=== PATIENT | male | born 1960 | race Caucasian/White ===

== ENCOUNTER 2024-08-06 09:35 | Emergency (ER) | payer OTHER, SELFPAY ==
[2024-08-06] VITALS (7 sets, daily range): BP systolic 147–174; BP diastolic 80–104; PULSE 60–69; RESP 14–19; TEMP 36.4; O2SAT 100
--- NOTE | ~2024-08-06 | XR_ITS ---
EXAMINATION: XR chest 2V 08/06/2024 10:41 INDICATION: Lightheadedness PROCEDURE: 2 view chest COMPARISON: No prior studies for comparison. FINDINGS: The lungs are clear. The cardiomediastinal silhouette is within normal limits. There are no pleural effusions. There is no pneumothorax suspected. IMPRESSION: 1: NO ACUTE CARDIOPULMONARY DISEASE. Reviewed, dictated and finalized at location A.
--- NOTE | 2024-08-06 09:48 | ECG_ITS ---
Test Date: 2024-08-06 09:50:27 Measurements Intervals [place] Rate: 58 P: 67 [place]: 167 QRS: 55 QRSD: 156 T: 15 QT: 462 QTc: 454 Interpretive Statements SINUS BRADYCARDIA WITH OCCASIONAL VENTRICULAR PREMATURE COMPLEXES RIGHT BUNDLE BRANCH BLOCK ABNORMAL ECG No previous ECG available for comparison Electronically Signed On 08-06-2024 09:59:39 CDT by Faizan Chester D.O.
[2024-08-06 10:03] LABS: Basophils Absolute Auto 0.1 K/mm3 (0.0-0.1); Basophils Percent Auto 0.7 % (0.2-1.2); Eosinophils Absolute Auto 0.1 K/mm3 (0-0.3); Eosinophils Percent Auto 0.6 % (0-4.4); Hematocrit 45.4 % (42.0-52.0); Hemoglobin 15.6 g/dL (14.0-18.0); Immature Granulocyte Absolute 0.03 K/mm3 (0.00-0.031); Immature Granulocyte Percent A 0.3 % (0-0.5); Lymphocytes Absolute Auto 1.38 K/mm3 (0.9-3.2); Lymphocytes Percent Auto 14.7 % (18.3-44.2); Mean Corpuscular HGB Conc 34.4 g/dl (32-36); Mean Corpuscular Hemoglobin 31.8 pg (26-34); Mean Corpuscular Volume 92.5 fl (80-100); Mean Platelet Volume 10.5 fl (7.4-10.4); Monocytes Absolute Auto 0.3 K/mm3 (0.1-0.6); Monocytes Percent Auto 3.4 % (2.6-8.5); Neutrophils Absolute Auto 7.5 K/mm3 (1.3-6.7); Neutrophils Percent Auto 80.3 % (45.5-73.1); Platelet Count Result 188 k/mm3 (150-375); Red Blood Count 4.91 M/mm3 (4.6-6.20); Red Cell Distribution Width 12.6 % (11.5-14.5); White Blood Count 9.4 K/mm3 (4.5-10.0)
--- OUTSIDE RECORDS SUMMARY | 2024-08-06 10:20 | XMS_ITS | Referral Summary ---
Author Organization [address] Address [address] [place] [address] Care Team Providers Care Real Estate Services Administrator Name Role Phone Walker Manning MD Primary Care Provider [phone] Allergies No known active allergies Medications aspirin (ASPIR-81) 81 mg tablet 81 mg. 0 0 5 Active Additional Information Patient taking differently:81 mgDaily, Reported on 12/14/2022 melatonin 5 mg capsuleIndicatio ns:Persistent disorder of initiating or maintaining sleep Take melatonin 5 mg if patient awakens during the night. 90 capsule 3 2 Active Additional Information Patient not taking.Reported on 12/13/2021 nitroglycerin (NITROSTAT) 0.4 mg SL tablet DISSOLVE 1 TABLET UNDER THE TONGUE EVERY 5 MINUTES NEEDED FOR CHEST PAIN. MAX OF 3 TABLETS IN 15 MINUTES. CALL 911 IF PAIN PERSISTS. 100 tablet 3 3 Active Additional Information Patient not taking.Reported on 03/24/2023 lisinopriL (PRINIVIL,ZESTRI L) 20 mg tablet TAKE 1 TABLET BY MOUTH DAILY 90 tablet 3 4 Active rosuvastatin (CRESTOR) 20 mg tablet TAKE 1 TABLET BY MOUTH DAILY 90 tablet 3 4 Active niacin ER (NIASPAN) 1,000 mg CR tablet TAKE 1 TABLET BY MOUTH AT NIGHT 90 tablet 3 4 Active metoprolol XL (TOPROL-XL) 50 mg extended release tablet TAKE 1 TABLET BY MOUTH DAILY 90 tablet 3 4 Active Active Problems Problem Noted Date Diagnosed Date Persistent disorder of initiating or maintaining sleep 08/11/2021 Encounter for preventive care 10/04/2020 Assessment & Plan (10/04/2020 12:03 PM CDT): Continue healthy lifestyle. Will order Cologuard and PSA testing as below. Will administer Tdap. Encouraged to get Shingrix. Knee pain 10/30/2016 Obstructive sleep apnea syndrome 04/29/2015 Overview (06/07/2016): Obstructive sleep apnea Assessment & Plan (05/05/2019 12:07 PM SENIOR SECURITY ARCHITECT): He will be placed on air sense 10 APAP set from 8-12 cm of water pressure. His goal of therapy will BT uses machine nightly for 7-9 hours. All supplies will be ordered. Onychomycosis 02/03/2014 Infectious warts 02/03/2014 Adult BMI 26.0-26.9 kg/sq m 07/28/2013 Atherosclerosis of coronary artery 04/27/2011 Assessment & Plan (10/04/2020 12:03 PM CDT): Stable. Lipids well-optimized. Continue current medications. Hypertension 04/27/2011 Assessment & Plan (10/04/2020 12:04 PM CDT): Home BP's at goal of < 130/80. Continue to monitor home blood pressures. Continue lisinopril 20 mg daily. Assessment & Plan (05/05/2019 12:08 PM SENIOR SECURITY ARCHITECT): Reviewed and discussed with the patient that consistent use of his APAP therapy can help reduce risk of heart attack, stroke, irregular heart rhythm, congestive heart failure, diabetes and blood pressure control. He will be placed on a Pap 8-12 cm water pressure. Hypercholesterolemia 04/03/2011 Immunizations Immunization Administration Dates Next Due Tdap 10/04/2020 Social History Tobacco Use Types Packs/Day Years Used Date Smoking Tobacco: Never Smokeless Tobacco: Never Alcohol Use Standard Drinks/Week Comments Yes 0 (1 standard drink = 0.6 oz pur e alcohol) AUDIT-C Answer Date Recorded Q1: How often do you have a drink containing alcohol? 4 or more times a week 10/04/2020 Q2: How many drinks containi ng alcohol do you have on a typical day when you are drinking? 1 or 2 Q3: How often do you have si x or more drinks on one occasion? Never 10/04/2020 PHQ-2 Answer Date Recorded PHQ-2 Total Score (If total score is 3 or more points, staff should administer the PHQ-9) 0 10/04/2020 Exercise Vital Sign Answer Date Recorde d On average, how many days pe r week do you engage in moderate to strenuous exercise (like a brisk walk)? 7 days 10/04/2020 On average, how many minutes do you engage in exercise at this level? 30 min 10/04/2020 Sex and Gender Information Value Date Recorded Sex Assigned at Not on file Legal Sex Male 12:38 AM SENIOR SECURITY ARCHITECT Gender Identity Not on file Sexual Orientation Not on file Last Filed Vital Signs Vital Sign Reading Time Taken Comments Blood Pressure 118/74 03/24/2023 9:23 AM SENIOR SECURITY ARCHITECT Pulse 72 03/24/2023 9:23 AM SENIOR SECURITY ARCHITECT Temperature 37.2 C (99 F) 03/24/2023 9:23 AM SENIOR SECURITY ARCHITECT Respiratory Rate 18 03/24/2023 9:23 AM SENIOR SECURITY ARCHITECT Oxygen Saturation 95% 03/24/2023 9:23 AM SENIOR SECURITY ARCHITECT Inhaled Oxygen Concentration - - Weight 83.4 kg (183 lb 12.8 oz) 03/24/2023 9:23 AM SENIOR SECURITY ARCHITECT Height 182.9 cm (6' 0.01) 03/24/2023 9:23 AM CS T Body Mass Index 24.92 03/24/2023 9:23 AM SENIOR SECURITY ARCHITECT Plan of Treatment Not on file Procedures Procedure Name Priority Date/Time Associated Diagnosis Comments STOOL DNA COLOGUARD Routine 10/25/2020 10:45 AM CDT Colon cancer screening HEPATITIS C ANTIBODY Routine 10/04/2020 11:01 AM CDT Need for hepatitis C screening test PSA SCREEN Routine 10/04/2020 11:01 AM CDT Prostate cancer screening from Last 3 Months or Most Recently Relevant to Health Maintenance Results * Stool DNA - Cologuard (10/25/2020 10:45 AM CDT) Stool DNA - Cologuard Negative Negative [facility] (CLIA #:[id number]) Comment: NEGATIVE TEST RESULT. A negative Cologuard result indicates a low likelihood that a colorectal cancer (CRC) or advanced adenoma (adenomatous polyps with more advanced pre-malignant features) is present. The chance that a person with a negative Cologuard test has a colorectal cancer is less than 1 in 1500 (negative predictive value >99.9%) or has an advanced adenoma is less than 5.3% (negative predictive value 94.7%). These data are based on a prospective cross-sectional study of 10,000 individuals at average risk for colorectal cancer who were screened with both Cologuard and colonoscopy. (Phyllis Griffith et al, N Engl J Med 2014;370(14):8191-8592) The normal value (reference range) for this assay is negative. COLOGUARD RE-SCREENING RECOMMENDATION: Periodic colorectal cancer screening is an important part of preventive healthcare for asymptomatic individuals at average risk for colorectal cancer. Following a negative Cologuard result, the [place] Cancer Society and U.S. Multi-Society Task Force screening guidelines recommend a Cologuard re-screening interval of 3 years. References: [place] [employer] Society Guideline for Colorectal Cancer Screening: https://www.cancer.org/cancer/fxnky-fedgin-wdblmz/ufaxsezbc-eudtcirim-upnrsea/ac s-rec ommendations.html.; Sandoval BATEMAN, Harish FRAZIER, Claudy MijaresK, Colorectal Cancer Screening: Recommendations for Physicians and Patients from the U.S. Multi-Society Task Force on Colorectal Cancer Screening , Am J Gastroenterology 2017; 112:2259-8769. TEST DESCRIPTION: Composite algorithmic analysis of stool DNA-biomarkers with hemoglobin immunoassay. Quantitative values of individual biomarkers are not reportable and are not associated with individual biomarker result reference ranges. Cologuard is intended for colorectal cancer screening of adults of either sex, 45 years or older, who are at average-risk for colorectal cancer (CRC). Cologuard has been approved for use by the U.S. FDA. The performance of Cologuard was established in a cross sectional study of average-risk adults aged 50-84. Cologuard performance in patients ages 45 to 49 years was estimated by sub-group analysis of near-age groups. Colonoscopies performed for a positive result may find as the most clinically significant lesion: colorectal cancer [4.0%], advanced adenoma (including sessile serrated polyps greater than or equal to 1cm diameter) [20%] or non- advanced adenoma [31%]; or no colorectal neoplasia [45%]. These estimates are derived from a prospective cross-sectional screening study of 10,000 individuals at average risk for colorectal cancer who were screened with both Cologuard and colonoscopy. (Phyllis Mayers. et al, N Engl J Med 2014;370(14):4981-5237.) Cologuard may produce a false negative or false positive result (no colorectal cancer or precancerous polyp present at colonoscopy follow up). A negative Cologuard test result does not guarantee the absence of CRC or advanced adenoma (pre-cancer). The current Cologuard screening interval is every 3 years. ([place] Cancer Society and U.S. Multi-Society Task Force). Cologuard performance data in a 10,000 patient pivotal study using colonoscopy as the reference method can be accessed at the following location: www.[employer]!/results. Additional description of the Cologuard test process, warnings and precautions can be found at www.[employer]orica[employer].com. Stool 10/25/2020 10:4 5 AM CDT 10/26/2020 4:03 PM CDT us Walker Manning MD LAB BODY FLUIDS AND STOOLS OR DERABLES Final Result [facility] (CLIA #:[id number]) [place] [address] [address] * PSA screen (10/04/2020 11:01 AM CDT) PSA 0.5 0.0 - 4.0 ng/mL [facility] - 01 Comment: Rachel ECLIA methodology. According to the [place] U[employer] Association, Serum PSA should decrease and remain at undetectable levels after radical prostatectomy. The AUA defines biochemical recurrence as an initial PSA value 0.2 ng/mL or greater followed by a subsequent confirmatory PSA value 0.2 ng/mL or greater. Values obtained with different assay methods or kits cannot be used interchangeably. Results cannot be interpreted as absolute evidence of the presence or absence of malignant disease. Blood specimen (specimen) 10/04/2020 11:01 AM CDT 10/04/2020 Narrative [facility] - 10/05/2020 6:10 AM CDT Performed at: [address] [place] [id number] Cutter: Sunil Gallegos PhD, Phone: [phone] Walker Manning MD LAB BLOOD ORDERABLES Final Re sult Performing Organization Address [place] de Phone Number [facility] * Hepatitis C antibody (10/04/2020 11:01 AM CDT) [facility] [address] [facility] Hep C Ab <0.1 0.0 - 0.9 s/co ratio [facility] - 01 Comment: Negative: < 0.8 Indeterminate: 0.8 - 0.9 Positive: > 0.9 The CDC recommends that a positive HCV antibody result be followed up with a HCV Nucleic Acid Amplification test (226222). Blood specimen (specimen) 10/04/2020 11:01 AM CDT 10/04/2020 Narrative [facility] - 10/05/2020 6:10 AM CDT Performed at: [address] [place] [id number] Cutter: Sunil Gallegos PhD, Phone: [phone] Walker Manning MD LAB MICROBIOLOGY - GENERAL OR DERABLES Final Result Performing Organization Address [place] de Phone Number [facility] from Last 3 Months or Most Recently Relevant to Health Maintenance Insurance [employer] OPEN ACCESS ANTHEM ACCESS CHOICE [employer]IG[employer] HE[employer] PPO [facility] CHOICE PLUS [facility] ACCESS CHOICE [facility] CHOICE PLUS [facility] CHOICE PLUS Care Teams Real Estate Services Administrator Relationship Specialty Start Date End Date Walker Manning MD PCP - General Endocrinology Diabetes & Metabolism 10/03/20
--- OUTSIDE RECORDS SUMMARY | 2024-08-06 10:20 | XMS_ITS | Clinical Summary ---
Author Organization [address] Address [address] [place] [address] Care Team Providers Care Nursing Clerk Name Role Phone Walker Manning MD Primary Care Provider [phone] Allergies No known active allergies Medications aspirin [...] apnea Assessment & Plan (05/05/2019 12:07 PM PHOTO MASK PATTERN GENERATOR): He will be placed on air sense [...] daily. Assessment & Plan (05/05/2019 12:08 PM PHOTO MASK PATTERN GENERATOR): Reviewed and discussed with the patient that consistent use of his APAP therapy can help reduce risk of heart attack, stroke, irregular heart rhythm, congestive heart failure, diabetes and blood pressure control. He will be placed on a Pap 8-12 cm water pressure. Hypercholesterolemia 04/03/2011 Immunizations Immunization Administration Dates Next Due Tdap 10/04/2020 Surgical History Surgery Date Site/Laterality Comments OTHER SURGICAL HISTORY ear surgery - stapendectomy bilateral STAPEDECTOMY Medical History Medical History Date Comments Hypertension Hypertension Chronic coronary artery disease Coronary artery disease Hx Other Medical hyperlipidemia; Comments: [facility] 04/20/2014 - Hx Other Medical OR 2006; Commen ts: [facility] 04/20/2014 - Recurrent sinus infections Hyperlipidemia Family History Medical History Relation Name Comments Heart attack Brother Myocardial infa rction; Heart attack Father Myocardial infa rction; Other Mother inflamatory lashae scott; Relation Name Status Comments Brother Father Mother Social History Tobacco Use Types Packs/Day Years [...] on file Legal Sex Male 12:38 AM PHOTO MASK PATTERN GENERATOR Gender Identity Not on file Sexual Orientation Not on file Obstetrics History Last Filed Vital Signs Vital Sign Reading Time Taken Comments Blood Pressure 118/74 03/24/2023 9:23 AM PHOTO MASK PATTERN GENERATOR Pulse 72 03/24/2023 9:23 AM PHOTO MASK PATTERN GENERATOR Temperature 37.2 C (99 F) 03/24/2023 9:23 AM PHOTO MASK PATTERN GENERATOR Respiratory Rate 18 03/24/2023 9:23 AM PHOTO MASK PATTERN GENERATOR Oxygen Saturation 95% 03/24/2023 9:23 AM PHOTO MASK PATTERN GENERATOR Inhaled Oxygen Concentration - - Weight 83.4 kg (183 lb 12.8 oz) 03/24/2023 9:23 AM PHOTO MASK PATTERN GENERATOR Height 182.9 cm (6' 0.01) 03/24/2023 9:23 AM CS T Body Mass Index 24.92 03/24/2023 9:23 AM PHOTO MASK PATTERN GENERATOR Plan of Treatment Health Maintenance Due Date Last Done Comments Colon Cancer Screening-Colonoscopy 1960 Fall Risk Assessment 1960 Hepatitis B Screening 01/21/1976 Pneumococcal vaccine 65+ (1 of 1 - PCV) 01/21/2008 Zoster Vaccine (1 of 2) 01/21/2008 Depression Screening 10/04/2021 10/04/2020 Prostate Cancer Screening-PSA 10/04/2022 10/04/2020 Abdominal Aortic Aneurysm (AAA) Screen 2023 Well Visit 65+ 2023 10/04/2020 Influenza Vaccine (Season Ended) 2024 DTaP/Tdap/Td Vaccine (2 - Td or Tdap) 10/04/203005/2020 Hepatitis C Screening Completed 10/04/2020 Colon Cancer Screening-DNA Stool Discontinued 10/26/19 Colon Cancer Screening-FIT Discontinued 10/25/2020 Procedures Procedure Name Priority Date/Time Associated Diagnosis [...] DNA - Cologuard (10/25/2020 10:45 AM CDT) Pathologist [facility] Stool DNA - Cologuard Negative Negative [place] (CLIA #:[id number]) Comment: NEGATIVE TEST RESULT. A negative Cologuard [...] screened with both Cologuard and colonoscopy. (Phyllis Marcelo al, N Engl J Med 2014;370(14):1531-3688) The normal value (reference range) for this assay is negative. COLOGUARD RE-SCREENING RECOMMENDATION: Periodic colorectal cancer screening is an important part of preventive healthcare for asymptomatic individuals at average risk for colorectal cancer. Following a negative Cologuard result, the [place] [employer] Society and U.S. Multi-Society Task Force screening guidelines recommend a Cologuard re-screening interval of 3 years. References: [place] [employer] Guideline for Colorectal Cancer Screening: https://www.cancer.org/cancer/cucph-atqrkg-rvjidh/tvayeotmq-ikhxiyyal-ngjnaxc/ac s-rec ommendations.html.; Sandoval BATEMAN, Harish FRAZIER, Claudy MijaresK, Colorectal Cancer Screening: Recommendations for Physicians and Patients from the U.S. Multi-Society Task Force on Colorectal Cancer Screening , Am J Gastroenterology 2017; 112:0628-3614. TEST DESCRIPTION: Composite algorithmic analysis of stool [...] screened with both Cologuard and colonoscopy. (Phyllis Bingham, N Engl J Med 2014;370(14):9122-6162.) Cologuard may produce a false negative or false positive result (no colorectal cancer or precancerous polyp present at colonoscopy follow up). A negative Cologuard test result does not guarantee the absence of CRC or advanced adenoma (pre-cancer). The current Cologuard screening interval is every 3 years. ([place] [employer] Society and U.S. Multi-Society Task Force). Cologuard performance data in a 10,000 patient pivotal study using colonoscopy as the reference method can be accessed at the following location: www.[employer]/results. Additional description of the Cologuard test process, warnings and precautions can be found at www.[employer]Slipstream[employer].com. Stool 10/25/2020 10:4 5 AM CDT 10/26/2020 4:03 PM CDT Walker Manning MD LAB BODY FLUIDS AND STOOLS OR DERABLES Final Result [facility] (CLIA #:[id number]) [place] [address] * PSA screen (10/04/2020 11:01 AM CDT) PSA 0.5 0.0 - 4.0 ng/mL [facility] - Comment: Rachel ECLIA methodology. According to the [place] U[employer], Serum PSA should decrease and [...] - 10/05/2020 6:10 AM CDT Performed at: [facility] [id number] Simulation Educator: Sunil Gallegos PhD, Phone: [phone] Walker Manning MD LAB BLOOD ORDERABLES Final Re sult [facility] - 01 * Hepatitis C antibody (10/04/2020 11:01 AM CDT) [facility] Hep C Ab <0.1 0.0 - 0.9 s/co ratio [facility] - 01 Comment: Negative: < 0.8 Indeterminate: 0.8 - 0.9 Positive: > 0.9 The CDC recommends that a positive HCV antibody result be followed up with a HCV Nucleic Acid Amplification test (074766). Blood specimen (specimen) 10/04/2020 11:01 AM CDT 10/04/2020 Narrative [facility] - 10/05/2020 6:10 AM CDT Performed at: [address] [id number] Simulation Educator: Sunil Gallegos PhD, Phone: [phone] Walker Manning MD LAB MICROBIOLOGY - GENERAL OR DERABLES Final Result Performing Organization Address [place] Co de Phone Number [facility] - 01 from Last 3 Months or Most Recently Relevant to Health Maintenance Insurance [employer] OPEN ACCESS ANTHEM ACCESS CHOICE [facility] PPO [facility] CHOICE PLUS ANTHEM ACCESS CHOICE [facility] CHOICE PLUS Care Teams Nursing Clerk Relationship Specialty Start Date End Date Walker Manning MD PCP - General Endocrinology Diabetes & Metabolism 10/03/20
--- OUTSIDE RECORDS SUMMARY | 2024-08-06 10:20 | XMS_ITS | Encounter Summary ---
Author Organization [facility] Address [address] [place] [address] Phone Care Team Providers Care Bilingual School Psychologist Name Role Phone Srikanth Ferris MD Primary Care Provider [phone] Maurice Lynn MD Primary Care Provider [phone] No, Physician Primary Care Provider [phone] Srikanth Ferris MD Primary Care Provider [phone] Walker Manning MD Primary Care Provider [phone] Encounter Details Date Type Department Care Team (Late st Contact Info) Description 02/05/2018 Telephone [facility] Cardiology [address] [facility] [address]th [place] [address] [place] [address] Maurice Lynn MD [address] [place] [address] Social History Tobacco Use Types Packs/Day Years Used Date Smoking Tobacco: Never Smokeless Tobacco: Never Alcohol Use Standard Drinks/Week Comments Yes 0 (1 standard drink = 0.6 oz pur e alcohol) Sex and Gender Information Value Date Recorded Sex Assigned at Not on file Legal Sex Male 12:38 AM INSIDE SALES ACCOUNT EXECUTIVE Gender Identity Not on file Sexual Orientation Not on file documented as of this encounter Plan of Treatment Not on file documented as of this encounter Visit Diagnoses Not on filedocumented in this encounter Additional Health Concerns Infection Onset Date Last Indicated Resolved Time COVID: Suspected 03/24/2023 03/24/2023 03/24/2023 9:45 AM INSIDE SALES ACCOUNT EXECUTIVE COVID19 03/24/2023 03/24/2023 04/03/2023 3:05 AM INSIDE SALES ACCOUNT EXECUTIVE documented as of this encounter Care Teams Bilingual School Psychologist Relationship Specialty Start Date End Date Srikanth Ferris MD [address] [email or web address] [address] [address] PCP - General 10/24/16 03/05/18 Maurice Lynn MD [address] [email or web address] [address] [address] PCP - General Cardiology 03/06/18 03/17/18 No, Physician PCP - General 03/18/18 10/21/18 Srikanth Ferris MD [address] [email or web address] [address] [address] PCP - General Endocrinology Diabetes & Metabolism 10/22/18 10/02/20 Walker Manning MD PCP - General Endocrinology Diabetes & Metabolism 10/03/20 documented as of this encounter
[2024-08-06 10:25] LABS: Alanine Aminotransferase 23 U/L (6-50); Albumin Level 4.6 g/dL (3.5-5.1); Alkaline Phosphatase 59 U/L (38-126); Anion Gap 9 mmol/L (4-12); Aspartate Amino Transferase 33 U/L (17-59); Bilirubin,Total 0.7 mg/dL (0.2-1.3); Blood Urea Nitrogen 27 mg/dL (9-20); Calcium 9.9 mg/dL (8.4-10.2); Carbon Dioxide 24 mmol/L (22-30); Chloride 106 mmol/L (98-107); Estimated CRCL calculation 75 ml/min; Estimated Glomerular Filt Rate > 60; Glucose 147 mg/dL (65-110); Potassium 4.4 mmol/L (3.4-5.0); Sodium 139 mmol/L (137-145); Total Protein 7.6 g/dL (6.3-8.2)
[2024-08-06] MEDS: MECLIZINE HCL 25 MG TABLET PO (10:43)
[2024-08-06] MEDS: SODIUM CHLORIDE 0.9% IV 1,000 ML 999 ML IV CONT (10:43)
[2024-08-06] MEDS: ONDANSETRON INJ 4 MG/2 ML VIAL IV PUSH (10:44)
--- OUTSIDE RECORDS SUMMARY | 2024-08-06 11:37 | XMS_ITS | Encounter Summary ---
Author Organization [facility] Address [address] [place] [address] Phone Care Team Providers Care Manhole Builder Name Role Phone Srikanth Ferris MD Primary Care Provider [phone] Maurice Lynn MD Primary Care Provider [phone] No, Physician Primary Care Provider [phone] Srikanth Ferris MD Primary Care Provider [phone] Walker Manning MD Primary Care Provider [phone] Encounter Details Date Type Department Care Team (Late st Contact Info) Description 02/05/2018 Telephone [facility] Cardiology [address] [facility] Advanced Medicine 8th [place] [address] [place] [address] Maurice Lynn MD [address] [place] [address] Social History Tobacco Use Types Packs/Day Years Used Date Smoking Tobacco: Never Smokeless Tobacco: Never Alcohol Use Standard Drinks/Week Comments Yes 0 (1 standard drink = 0.6 oz pur e alcohol) Sex and Gender Information Value Date Recorded Sex Assigned at Not on file Legal Sex Male 12:38 AM EDUCATIONAL PSYCHOLOGIST Gender Identity Not on file Sexual Orientation Not on file documented as of this encounter Plan of Treatment Not on file documented as of this encounter Visit Diagnoses Not on filedocumented in this encounter Additional Health Concerns Infection Onset Date Last Indicated Resolved Time COVID: Suspected 03/24/2023 03/24/2023 03/24/2023 9:45 AM EDUCATIONAL PSYCHOLOGIST COVID19 03/24/2023 03/24/2023 04/03/2023 3:05 AM EDUCATIONAL PSYCHOLOGIST documented as of this encounter Care Teams Manhole Builder Relationship Specialty Start Date End Date Srikanth Ferris MD [address] [employer] [address] [address] PCP - General 10/24/16 03/05/18 Maurice Lynn MD [address] [employer] [address] [address] PCP - General Cardiology 03/06/18 03/17/18 No, Physician PCP - General 03/18/18 10/21/18 Srikanth Ferris MD [address] [employer] [address] [address] PCP - General Endocrinology Diabetes & Metabolism 10/22/18 10/02/20 Wakler Manning MD PCP - General Endocrinology Diabetes & Metabolism 10/03/20 documented as of this encounter
--- OUTSIDE RECORDS SUMMARY | 2024-08-06 11:37 | XMS_ITS | Clinical Summary ---
Author Organization [address] Address [address] [place] [address] Care Team Providers Care Area Loss Prevention Manager Name Role Phone Walker Manning MD Primary Care Provider [phone] Allergies No known active allergies Medications aspirin [...] apnea Assessment & Plan (05/05/2019 12:07 PM MARBLE POLISHER HAND): He will be placed on air sense [...] daily. Assessment & Plan (05/05/2019 12:08 PM MARBLE POLISHER HAND): Reviewed and discussed with the patient that [...] Comments: [facility] 04/20/2014 - Hx Other Medical PA 2006; Commen ts: [facility] 04/20/2014 - Recurrent sinus infections Hyperlipidemia Family [...] on file Legal Sex Male 12:38 AM MARBLE POLISHER HAND Gender Identity Not on file Sexual Orientation Not on file Obstetrics History Last Filed Vital Signs Vital Sign Reading Time Taken Comments Blood Pressure 118/74 03/24/2023 9:23 AM MARBLE POLISHER HAND Pulse 72 03/24/2023 9:23 AM MARBLE POLISHER HAND Temperature 37.2 C (99 F) 03/24/2023 9:23 AM MARBLE POLISHER HAND Respiratory Rate 18 03/24/2023 9:23 AM MARBLE POLISHER HAND Oxygen Saturation 95% 03/24/2023 9:23 AM MARBLE POLISHER HAND Inhaled Oxygen Concentration - - Weight 83.4 kg (183 lb 12.8 oz) 03/24/2023 9:23 AM MARBLE POLISHER HAND Height 182.9 cm (6' 0.01) 03/24/2023 9:23 AM CS T Body Mass Index 24.92 03/24/2023 9:23 AM MARBLE POLISHER HAND Plan of Treatment Health Maintenance Due Date [...] - Cologuard (10/25/2020 10:45 AM CDT) Pathologist [facility] Stool DNA - Cologuard Negative Negative [facility] (CLIA #:[id number]) Comment: NEGATIVE TEST RESULT. A negative Cologuard [...] (Phyllis Marcelo al, N Engl J Med 2014;370(14):4655-7282) The normal value (reference range) for this assay is negative. COLOGUARD RE-SCREENING RECOMMENDATION: Periodic colorectal cancer screening is an important part of preventive healthcare for asymptomatic individuals at average risk for colorectal cancer. Following a negative Cologuard result, the [place] Cancer Society and U.S. Multi-Society Task Force screening guidelines recommend a Cologuard re-screening interval of 3 years. References: [place] Cancer Society Guideline for Colorectal Cancer Screening: https://www.cancer.org/cancer/bgwyw-upilgt-wuvmdz/ickokbiuz-odzkcklvt-chbqani/ac s-rec ommendations.html.; Sandoval BATEMAN, Harish FRAZIER, Claudy MijaresK, Colorectal Cancer Screening: Recommendations for Physicians and Patients from the U.S. Multi-Society Task Force on Colorectal Cancer Screening , Am J Gastroenterology 2017; 112:4620-1245. TEST DESCRIPTION: Composite algorithmic analysis of stool [...] colonoscopy. (Phyllis Bingham, N Engl J Med 2014;370(14):2517-3003.) Cologuard may produce a false negative or false positive result (no colorectal cancer or precancerous polyp present at colonoscopy follow up). A negative Cologuard test result does not guarantee the absence of CRC or advanced adenoma (pre-cancer). The current Cologuard screening interval is every 3 years. ([place] Cancer Society and U.S. Multi-Society Task Force). Cologuard performance data in a 10,000 patient pivotal study using colonoscopy as the reference method can be accessed at the following location: www.[employer].Bellmetric/results. Additional description of the Cologuard test process, warnings and precautions can be found at www.[employer]rd.com. Stool 10/25/2020 10:4 5 AM CDT 10/26/2020 4:03 PM CDT Walker Manning MD LAB BODY FLUIDS AND STOOLS OR DERABLES Final Result [facility] (CLIA #:[id number]) [place] [address] * PSA screen (10/04/2020 11:01 AM CDT) PSA 0.5 0.0 - 4.0 ng/mL [facility] - Comment: Rachel ECLIA methodology. According to the [place] Urological Association, Serum PSA should decrease and [...] - 10/05/2020 6:10 AM CDT Performed at: [facility] [id number] Felt Hat Inspector And Packer: Sunil Gallegos PhD, Phone: [phone] Walker Manning MD LAB BLOOD ORDERABLES Final Re sult [facility] - 01 * Hepatitis C antibody (10/04/2020 11:01 AM CDT) [facility] Hep C Ab <0.1 0.0 - 0.9 s/co ratio [facility] - 01 Comment: Negative: < 0.8 Indeterminate: 0.8 - 0.9 Positive: > 0.9 The CDC recommends that a positive HCV antibody result be followed up with a HCV Nucleic Acid Amplification test (831421). Blood specimen (specimen) 10/04/2020 11:01 AM CDT 10/04/2020 Narrative [facility] - 10/05/2020 6:10 AM CDT Performed at: [facility] [id number] Felt Hat Inspector And Packer: Sunil Gallegos PhD, Phone: [phone] Walker Manning MD LAB MICROBIOLOGY - GENERAL OR DERABLES Final Result Performing Organization Address City/[facility] Co de Phone Number [facility] - 01 from Last 3 Months or Most Recently Relevant to Health Maintenance Insurance [employer] OPEN ACCESS ANTHEM ACCESS CHOICE [facility] HEALTHC[facility] PPO [facility] HMO/PPO Address: [facility] [id number] [place] [address] [facility] CHOICE PLUS ANTHEM ACCESS CHOICE [facility] CHOICE PLUS Care Teams Area Loss Prevention Manager Relationship Specialty Start Date End Date Walker Manning MD PCP - General Endocrinology Diabetes & Metabolism 10/03/20
--- OUTSIDE RECORDS SUMMARY | 2024-08-06 11:37 | XMS_ITS | Referral Summary ---
Author Organization [address] Address [address] [place] [address] Care Team Providers Care Underwear Cutter Name Role Phone Walker Manning MD Primary Care Provider [phone] Allergies No known active allergies Medications aspirin [...] apnea Assessment & Plan (05/05/2019 12:07 PM ARRANGING FUNERAL DIRECTOR): He will be placed on air sense [...] daily. Assessment & Plan (05/05/2019 12:08 PM ARRANGING FUNERAL DIRECTOR): Reviewed and discussed with the patient that [...] on file Legal Sex Male 12:38 AM ARRANGING FUNERAL DIRECTOR Gender Identity Not on file Sexual Orientation Not on file Last Filed Vital Signs Vital Sign Reading Time Taken Comments Blood Pressure 118/74 03/24/2023 9:23 AM ARRANGING FUNERAL DIRECTOR Pulse 72 03/24/2023 9:23 AM ARRANGING FUNERAL DIRECTOR Temperature 37.2 C (99 F) 03/24/2023 9:23 AM ARRANGING FUNERAL DIRECTOR Respiratory Rate 18 03/24/2023 9:23 AM ARRANGING FUNERAL DIRECTOR Oxygen Saturation 95% 03/24/2023 9:23 AM ARRANGING FUNERAL DIRECTOR Inhaled Oxygen Concentration - - Weight 83.4 kg (183 lb 12.8 oz) 03/24/2023 9:23 AM ARRANGING FUNERAL DIRECTOR Height 182.9 cm (6' 0.01) 03/24/2023 9:23 AM CS T Body Mass Index 24.92 03/24/2023 9:23 AM ARRANGING FUNERAL DIRECTOR Plan of Treatment Not on file Procedures [...] CDT) Stool DNA - Cologuard Negative Negative [facility] (CLIA #:[id number]) Comment: NEGATIVE TEST RESULT. A negative Cologuard [...] Griffith et al, N Engl J Med 2014;370(14):7138-4813) The normal value (reference range) for this assay is negative. COLOGUARD RE-SCREENING RECOMMENDATION: Periodic colorectal cancer screening is an important part of preventive healthcare for asymptomatic individuals at average risk for colorectal cancer. Following a negative Cologuard result, the [place] Cancer Society and U.S. Multi-Society Task Force screening guidelines recommend a Cologuard re-screening interval of 3 years. References: [place] Cancer Society Guideline for Colorectal Cancer Screening: https://www.cancer.org/cancer/soqvq-cqnzwn-tfellr/uabgjxegf-vncatoijp-zrolysh/ac s-rec ommendations.html.; Sandoval BATEMAN, Harish FRAZIER, Claudy MijaresK, Colorectal Cancer Screening: Recommendations for Physicians and Patients from the U.S. Multi-Society Task Force on Colorectal Cancer Screening , Am J Gastroenterology 2017; 112:3013-7533. TEST DESCRIPTION: Composite algorithmic analysis of stool [...] Mayers. et al, N Engl J Med 2014;370(14):6920-3785.) Cologuard may produce a false negative or false positive result (no colorectal cancer or precancerous polyp present at colonoscopy follow up). A negative Cologuard test result does not guarantee the absence of CRC or advanced adenoma (pre-cancer). The current Cologuard screening interval is every 3 years. ([place] Cancer Society and U.S. Multi-Society Task Force). Cologuard performance data in a 10,000 patient pivotal study using colonoscopy as the reference method can be accessed at the following location: www.[employer]/results. Additional description of the Cologuard test process, warnings and precautions can be found at www.[employer].com. Stool 10/25/2020 10:4 5 AM CDT 10/26/2020 4:03 PM CDT us Walker Manning MD LAB BODY FLUIDS AND STOOLS OR DERABLES Final Result [facility] (CLIA #:[id number]) [place] [address] * PSA screen (10/04/2020 11:01 AM CDT) PSA 0.5 0.0 - 4.0 ng/mL [facility] - 01 Comment: Rachel ECLIA methodology. According to the [place] Urological Association, Serum PSA should decrease and [...] - 10/05/2020 6:10 AM CDT Performed at: [address] [place] [id number] Securities Analyst: Sunil Gallegos PhD, Phone: [phone] Walker Manning MD LAB BLOOD ORDERABLES Final Re sult Performing Organization Address [facility] de Phone Number [facility] * Hepatitis C antibody (10/04/2020 11:01 AM CDT) [facility] Hep C Ab <0.1 0.0 - 0.9 s/co ratio [facility] - 01 Comment: Negative: < 0.8 Indeterminate: 0.8 - 0.9 Positive: > 0.9 The CDC recommends that a positive HCV antibody result be followed up with a HCV Nucleic Acid Amplification test (030273). Blood specimen (specimen) 10/04/2020 11:01 AM CDT 10/04/2020 Narrative [facility] - 10/05/2020 6:10 AM CDT Performed at: [address] [place] [id number] Securities Analyst: Sunil Gallegos PhD, Phone: [phone] Walker Manning MD LAB MICROBIOLOGY - GENERAL OR DERABLES Final Result Performing Organization Address [facility] de Phone Number [facility] from Last 3 Months or Most Recently Relevant to Health Maintenance Insurance [employer] OPEN ACCESS ANTHEM ACCESS CHOICE [facility] Address: [address] [place] [address] [employer] HEALTHCARE PPO [facility] CHOICE PLUS [facility] ACCESS CHOICE [facility] Address: [address] [place] [address] [facility] CHOICE PLUS [facility] CHOICE PLUS Care Teams Underwear Cutter Relationship Specialty Start Date End Date Walker Manning MD PCP - General Endocrinology Diabetes & Metabolism 10/03/20
--- OUTSIDE RECORDS SUMMARY | 2024-08-06 11:37 | XMS_ITS | CONTINUITY OF CARE DOCUMENT ---
Author Name lin ceballos Address Unknown Organization [facility] Address [address] [place] [address] [address], [place] [address] Phone [phone] Care Team Providers Care Wine Consultant Name Role Phone Steven MORENO, Natividad Unavailable PROBLEMS Condition Status Date Provider Notes HYPERCHOLESTEROLEMIA active Taylor Little HTN ESSENTIAL active Taylor Little CAD active Taylor Little ENCOUNTERS Date Type Provider Location Encounter Diag nosis - In-person encounter Office Visit Natividad Harris MD [facility] VITAL SIGNS Date Observation Value Provider blood pressure, diastolic 80 mm[Hg] Blake Maldonado blood pressure, systolic 126 mm[Hg] Rosy Maldonado pulse rate 51 /min Patrick breen oxygen saturation, oximetry 96 % Patrick Maldonado respiratory rate E&M 18 /min Maosud Maldonado weight E&M 192.6 [lb_av] Patrick daniels ALLERGIES No Known Drug Allergies HISTORY OF MEDICATION USE Medication Status Instructions Dates Provider Indications Com ments LOVASTATIN 20 MG ORAL TABLET active ONE TAB. DAILY 9 Елена Broussard RN NIASPAN 1000 MG ORAL TABLET EXTENDED RELEASE active ONE TAB. AT BEDTIME - Dispense as written 9 Елена Broussard RN ASPIRIN 81 MG ORAL TABLET active ONE TAB. DAILY Patrick Maldonado LISINOPRIL 20 MG ORAL TABLET active daily Taylor Little TOPROL XL 50 MG ORAL TABLET EXTENDED RELEASE 24 HOUR active TAKE ONE TABLET BY MOUTH DAILY Gracie Cecilia ADVICOR 1000-20 MG ORAL TABLET EXTENDED RELEASE 24 HOUR completed daily - 9 Елена Broussard RN PLAVIX 75 MG ORAL TABLET active daily Taylor Little SOCIAL HISTORY Date Observation Value Provider social history E&M L edil with family/friends E thnicity: Natividad Harris MD drug use none Natividad Harris MD social history reviewed E&M reviewed Natividad Harris MD physical exercise, f requency, days per week yes [employer] caffeine use, averag e drinks per day yes [employer] alcohol use, average drinks per day social basis only [employer] smoking status Non-smoker [employer] MENTAL STATUS Date Observation Value Provider assessment of judgme nt and insight E&M Alert and oriented to time, place and person. Mood and affect are normal. Natividad Harris MD INSURANCE PROVIDERS Payer name Policy type / Coverage type [place] red libertarian ID [facility] Nitronex [id number] TREATMENT PLAN Date Name LIPID PANEL COMPREHENSIVE METABO LIC PANEL W/EGFR CBC (INCLUDES DIFF/P LT) HISTORY OF PROCEDURES Procedure Date Procedure Name Provider Procedure Notes S tatus EKG Natividad Harris MD completed
[2024-08-06 11:49] LABS: Troponin I < 0.012 ng/mL (0.000-0.034)
--- NOTE | 2024-08-06 13:51 | ED.GENADULT ---
HPI - General Adult General Chief complaint: Dizziness Stated complaint: nausea, dizzy, high BP Time Seen by Provider: 08/06/24 09:59 History of Present Illness HPI narrative: Patient is a 64-year-old male who presents ER dizziness. Woke him up from sleep. Spinning in nature. Worse with sitting up and turning. Similar to the vertigo he has had in the past. No chest pain but has history of atypical CO in the past with GI symptoms which he does not currently have. He did notice that his blood pressure was elevated. Related Data Allergies Allergy/AdvReac Type Severity Reaction Status Date / Time No Known Allergies Allergy Verified 08/06/24 09:47 Review of Systems Review of Systems: All systems reviewed & are unremarkable except as noted in HPI and below Constitutional: Constitutional: Reports no additional constitutional complaints ENT: Reports system reviewed and no additional complaints, except as documented Cardiovascular: Cardiovascular: Reports no additional cardiovascular complaints Respiratory: Respiratory: Reports no additional respiratory complaints PMFSH Past Medical History Medical History (Updated 08/06/24 @ 17:58 by Jim Chaidez MD) Myocardial infarction Exam Narrative: GENERAL: Well-appearing, well-nourished, and in no acute distress. HEAD: Normocephalic, atraumatic. EYES: PERRL and EOMI. ENT: Mucous membranes moist. CHEST: Clear to auscultation. No respiratory distress. HEART: Regular rate and rhythm. Normal peripheral pulses. ABDOMEN: Soft, nontender, nondistended. EXTREMITIES: Normal range of motion. No edema. SKIN: Warm, dry, no rash. NEURO: Alert and oriented x3. PSYCH: Normal mood and affect. Course Course Emergency Course: Markedly improved with meclizine. Discussed imaging/EKG/lab work. Appropriate for discharge. Vital Signs Vital signs: Vital Signs Temperature 97.6 F 08/06/24 09:45 Pulse Rate 64 08/06/24 09:45 Respiratory Rate 15 08/06/24 09:45 Blood Pressure 161/99 H 08/06/24 09:45 Pulse Oximetry 100 08/06/24 09:45 Oxygen Delivery Room Air 08/06/24 09:45 Temperature 97.6 F 08/06/24 09:45 Pulse Rate 60 08/06/24 14:02 Respiratory Rate 19 08/06/24 14:02 Blood Pressure 174/97 H 08/06/24 14:02 Pulse Oximetry 100 08/06/24 14:02 Oxygen Delivery Room Air 08/06/24 09:45 Medical Decision Making Vital Signs Vital Signs: Vital Signs Temperature 97.6 F 08/06/24 09:45 Pulse Rate 64 08/06/24 09:45 Respiratory Rate 15 08/06/24 09:45 Blood Pressure 161/99 H 08/06/24 09:45 Pulse Oximetry 100 08/06/24 09:45 Oxygen Delivery Room Air 08/06/24 09:45 Temperature 97.6 F 08/06/24 09:45 Pulse Rate 60 08/06/24 14:02 Respiratory Rate 19 08/06/24 14:02 Blood Pressure 174/97 H 08/06/24 14:02 Pulse Oximetry 100 08/06/24 14:02 Oxygen Delivery Room Air 08/06/24 09:45 Lab Data 08/06/24 09:58 08/06/24 09:58 Labs: Lab Results 08/06/24 Range/Units 09:58 WBC 9.4 (4.5-10.0) K/mm3 RBC 4.91 (4.6-6.20) M/mm3 Hgb 15.6 (14.0-18.0) g/dL Hct 45.4 (42.0-52.0) % MCV 92.5 (80-100) fl MCH 31.8 (26-34) pg MCHC 34.4 (32-36) g/dl RDW 12.6 (11.5-14.5) % Plt Count 188 (150-375) k/mm3 MPV 10.5 H (7.4-10.4) fl Immature Gran % (Auto) 0.3 (0-0.5) % Neut % (Auto) 80.3 H (45.5-73.1) % Lymph % (Auto) 14.7 L (18.3-44.2) % [place] % (Auto) 3.4 (2.6-8.5) % Eos % (Auto) 0.6 (0-4.4) % Baso % (Auto) 0.7 (0.2-1.2) % Lymph # (Auto) 1.38 (0.9-3.2) K/mm3 [place] # (Auto) 0.3 (0.1-0.6) K/mm3 Eos # (Auto) 0.1 (0-0.3) K/mm3 Baso # (Auto) 0.1 (0.0-0.1) K/mm3 Abs Immat Gran (auto) 0.03 (0.00-0.031) K/mm3 Absolute Neuts (auto) 7.5 H (1.3-6.7) K/mm3 Absolute Nucleated RBC 0.000 (0.0-0.012) K/mm3 Nucleated RBC % 0.0 (0.0-0.2) % Sodium 139 (137-145) mmol/L Potassium 4.4 (3.4-5.0) mmol/L Chloride 106 (98-107) mmol/L Carbon Dioxide 24 (22-30) mmol/L Anion Gap 9 (4-12) mmol/L BUN 27 H (9-20) mg/dL Creatinine 0.94 (0.7-1.3) mg/dL Estim Creat Clear Calc 75 ml/min Estimated GFR > 60 (59 - ) Glucose 147 H (65-110) mg/dL Calcium 9.9 (8.4-10.2) mg/dL Total Bilirubin 0.7 (0.2-1.3) mg/dL AST 33 (17-59) U/L ALT 23 (6-50) U/L Alkaline Phosphatase 59 (38-126) U/L Troponin I < 0.012 (0.000-0.034) ng/mL Total Protein 7.6 (6.3-8.2) g/dL Albumin 4.6 (3.5-5.1) g/dL Imaging Data Radiologist's impression: ITS Impressions Chest X-Ray 08/06/24 10:44 IMPRESSION: 1: NO ACUTE CARDIOPULMONARY DISEASE. ECG Data EKG #1: ECG completion date: 08/06/24 ECG completion time: 09:50 EKG Interpretation: bradycardia (58), sinus rhythm, non-specific ST changes and RBBB Discharge Plan Discharge Clinical Impression: Vertigo Patient Disposition: Home Condition: Stable Instructions: Vertigo (ED) Additional Instructions: Return ER if you have new focal weakness in arm or leg, you have slurred speech, your unable to walk, or you have additional concerns. Patient Language: Portuguese Prescriptions: New meclizine 25 mg tablet 25 mg PO BID PRN (Reason: dizziness) Qty: 14 0RF Follow-up/Referrals: UNKNOWN,DOCTOR [Primary Care Provider] - 1 Week
== END 2024-08-06 14:11 | disposition home or self-care (01) ==
PROVIDERS: Emergency Provider Emergency Medicine
DX: R42 Dizziness and giddiness (principal); I25.2 Old myocardial infarction; R00.1 Bradycardia, unspecified; I49.3 Ventricular premature depolarization; I45.10 Unspecified right bundle-branch block
CPT/HCPCS: 36415; 71046; 80053; 84484; 85025; 93005; 96361; 96374; 99284; A9270; J2405; J7030